=== PATIENT | female | born 1940 | race Caucasian/White ===

== ENCOUNTER 2024-08-04 11:13 | Emergency (ER) | payer OTHER, MEDICAID ==
[~2024-08-04] VITALS: Ht 144.8 cm; Wt 63.5 kg
[~2024-08-04 11:13] MED LIST: ALEN10TA25 PO; BACL10TA PO; BIMA2.5D5 OP; DORZ10DR10 EACH EYE; GLU850 PO; HYDR-3919 PO; LIP20 PO; LISI20TA30 PO; METO25TA3 PO; OMEP20CA15 PO; SYN50 PO
[2024-08-04 11:20] VITALS: BP_SYST 144; PULSE 61; RESP 18; TEMP 97.6; O2SAT 96
[2024-08-04 15:26] LABS: BASOPHILS % (AUTO) 0.5 % (0.0-2.0); EOSINOPHILS % (AUTO) 0.4 % (0.0-4.0); HEMATOCRIT 40.6 % (36-48); HEMOGLOBIN 14.2 g/dL (12.0-16.0); LYMPHOCYTES # (AUTO) 1.3 K/uL (1.0-5.5); LYMPHOCYTES % (AUTO) 21.5 % (20.5-51.5); MEAN CORPUSCULAR HEMOGLOBIN 33 pg (27-31); MEAN CORPUSCULAR HGB CONC 35 % (32-36); MEAN CORPUSCULAR VOLUME 96 fL (79.0-98.0); MONOCYTES # (AUTO) 0.6 K/uL (0.0-1.0); MONOCYTES % (AUTO) 9.2 % (1.7-9.3); NEUTROPHILS # (AUTO) 4.1 K/uL (1.8-7.7); NEUTROPHILS % (AUTO) 68.4 % (40.0-70.0); PLATELET COUNT (AUTO) 141 K/uL (130-430); RED BLOOD CELL COUNT(AUTO) 4.25 MIL/uL (4.2-6.2)
[2024-08-04 16:19] LABS: ANION GAP 8 (5-15); CALCIUM 9.4 mg/dL (8.4-11.0); CARBON DIOXIDE 30 mmol/L (23-29); CHLORIDE 106 mmol/L (98-107); CHOLESTEROL 192 mg/dL (<200); CREATININE 0.84 mg/dL (0.55-1.30); GLUCOSE 92 mg/dL (74-106); HDL CHOLESTEROL 54 mg/dL (>55); POTASSIUM 4.6 mmol/L (3.5-5.1); SODIUM SERUM 144 mmol/L (136-145); TRIGLYCERIDES 165 mg/dL (30-150); UREA NITROGEN, BLOOD 18 mg/dL (8-21)
[2024-08-04 16:25] LABS: INR 0.9 (0.8-1.2); PROTHROMBIN TIME 9.7 SECS (9.5-12.5)
[2024-08-04 16:39] LABS: BILIRUBIN,URINE NEGATIVE (NEGATIVE); BLOOD, URINE NEGATIVE (NEGATIVE); CLARITY/URINE CLEAR (CLEAR); COLOR,URINE YELLOW (YELLOW); GLUCOSE,URINE NEGATIVE (NEGATIVE); KETONES,URINE NEGATIVE (NEGATIVE); LEUKOCYTE ESTERASE ,URINE NEGATIVE (NEGATIVE); NITRITE, URINE NEGATIVE (NEGATIVE); PROTEIN URINE NEGATIVE (NEGATIVE); UROBILINOGEN,URINE 0.2 (0.2-1.0)
[2024-08-04 17:40] VITALS: BP_SYST 141; PULSE 64; RESP 16; TEMP 97.6; O2SAT 98
== END 2024-08-04 17:38 | disposition home or self-care (01) ==
LOC: SED 11:13
DX: R10.84 Generalized abdominal pain (principal); R11.0 Nausea; E11.9 Type 2 diabetes mellitus without complications; I10 Essential (primary) hypertension; E07.9 Disorder of thyroid, unspecified; K21.9 Gastro-esophageal reflux disease without esophagitis; Z79.84 Long term (current) use of oral hypoglycemic drugs; Z79.899 Other long term (current) drug therapy
CPT/HCPCS: 36415; 80048; 80061; 81001; 81003; 83605; 84484; 85025; 85610; 85730; 99284